=== PATIENT | female | born 1970 | race Hispanic/Latino ===

== ENCOUNTER 2019-07-26 12:01 | Emergency (ER) | payer OTHER ==
[~2019-07-26] VITALS: Ht 172.7 cm; Wt 165.6 kg
[2019-07-26] MEDS ORDERED: ONDANSETRON HCL INJ 2MG/ML 2ML 2 MG/ML VIAL IV STA (12:26)
[2019-07-26] MEDS ORDERED: SODIUM CHLORIDE 0.9% 1000ML 1,000 ML IV SCH (12:30)
--- NOTE | 2019-07-26 12:46 | NUR ---
PT STATED SHE IS TOO CLAUSTROPHOBIC TO DO CT, DR NOTIFIED ORDERS RECEIVED FOR 1MG ATIVAN, PT TOLERATED WELL,
[2019-07-26] MEDS ORDERED: LORAZEPAM INJ 2 MG/ML VIAL ONE (12:48)
[2019-07-26] MEDS ORDERED: SODIUM CHLORIDE 0.9% 1000ML 1,000 ML ONE (13:12)
[2019-07-26] MEDS ORDERED: ONDANSETRON HCL INJ 2MG/ML 2ML 2 MG/ML VIAL ONE (13:12)
[2019-07-26] MEDS ORDERED: LORAZEPAM INJ 2 MG/ML VIAL IV ONE (13:15)
[2019-07-26] MEDS ORDERED: CEFTRIAXONE SOD 1 GM/NS 50 ML 50 ML IV ONE (13:30)
[2019-07-26] MEDS ORDERED: CEFTRIAXONE SOD 1 GM VIAL ONE (13:38)
--- NOTE | 2019-07-26 14:15 | Diagnostic Imaging Report ---
EXAM: CT Abdomen and Pelvis WITH intravenous contrast INDICATION: Abdominal pain COMPARISON: None. TECHNIQUE: Abdomen and pelvis were scanned utilizing a multidetector helical scanner from the lung base to the pubic symphysis after administration of IV contrast. Coronal and sagittal reformations were obtained. Routine protocol was performed. Scan was performed during portal venous phase. IV CONTRAST: 100mL of Isovue 370 ORAL CONTRAST: Water RADIATION DOSE: Total DLP: 1164.4 mGy*cm Dose modulation, iterative reconstruction, and/or weight based adjustment of the mA/kV was utilized to reduce the radiation dose to as low as reasonably achievable. FINDINGS: LOWER THORAX: Mild interstitial pulmonary edema. Mild bibasilar subsegmental atelectasis. HEPATOBILIARY: No focal liver lesion. Status post cholecystectomy. SPLEEN: No splenomegaly. PANCREAS: No focal masses or ductal dilatation. ADRENALS: No adrenal nodules. KIDNEYS/URETERS: No hydronephrosis, stones, or solid mass lesions. PELVIC ORGANS/BLADDER: 4.7 cm right adnexal cyst. PERITONEUM / RETROPERITONEUM: No free air or fluid. LYMPH NODES: No lymphadenopathy. VESSELS: Unremarkable. GI TRACT: Status post gastric lap band. Mild diverticulosis. No CT evidence of diverticulitis. No abnormal bowel wall thickening. No bowel obstruction. Normal appendix. BONES AND SOFT TISSUES: No acute osseous injury. No suspicious lytic or blastic lesions. IMPRESSION: No acute findings in the abdomen or pelvis. Mild interstitial pulmonary edema. 4.7 cm right adnexal cyst. In this patient of 49 years of age, pelvic ultrasound follow-up in 6-12 months is recommended to document stability. Signed by: Coleen Sun MD on 07/26/2019 2:12 PM
[2019-07-26 14:22] VITALS: BP 147/91
[2019-07-26] MEDS ORDERED: BACTRIM DS TAB1 EACH PO (14:22)
[2019-07-26] MEDS ORDERED: NAPROSYN500 MG PO (14:22)
--- NOTE | 2019-07-26 14:30 | NUR ---
Urine culture collected and sent to the lab via [employer].
== END 2019-07-26 14:35 | disposition home or self-care (01) ==
LOC: FSED 12:01
DX: M54.5 Low back pain (principal); R10.31 Right lower quadrant pain; R11.0 Nausea; N30.91 Cystitis, unspecified with hematuria; N83.201 Unspecified ovarian cyst, right side
CPT/HCPCS: 74176; 87086; 99284; J0696; J2060; J2405; J7030

== ENCOUNTER 2022-01-03 17:00 | Emergency (ER) | payer OTHER ==
[~2022-01-03] VITALS: Ht 175.3 cm; Wt 163.3 kg
[~2022-01-03 17:00] MED LIST: BACTRIM DS TAB1 EACH PO; NAPROSYN500 MG PO
[2022-01-03] MEDS ORDERED: ONDANSETRON HCL INJ 2MG/ML 2ML 2 MG/ML VIAL IV STA (17:24)
[2022-01-03] MEDS ORDERED: SODIUM CHLORIDE 0.9% 100 ML 100 ML IV ONE (17:30)
[2022-01-03] MEDS ORDERED: SODIUM CHLORIDE 0.9% 1000ML 1,000 ML ONE (17:41)
[2022-01-03] MEDS ORDERED: ONDANSETRON HCL INJ 2MG/ML 2ML 2 MG/ML VIAL ONE (17:41)
[2022-01-03] MEDS ORDERED: DICYCLOMINE HCL10 MG PO (17:53)
[2022-01-03] MEDS ORDERED: ONDANSETRON ODT4 MG PO (17:53)
[2022-01-03 18:00] VITALS: BP 143/98
== END 2022-01-03 18:07 | disposition home or self-care (01) ==
LOC: FSED 17:28
DX: R11.2 Nausea with vomiting, unspecified (principal); K52.9 Noninfective gastroenteritis and colitis, unspecified; R50.9 Fever, unspecified; I10 Essential (primary) hypertension; F41.9 Anxiety disorder, unspecified; E03.9 Hypothyroidism, unspecified; Z98.84 Bariatric surgery status
CPT/HCPCS: 80048; 80076; 81003; 85025; 99283; J2405; J7030

== ENCOUNTER 2022-12-27 17:02 | Emergency (ER) | payer OTHER ==
[~2022-12-27] VITALS: Ht 175.3 cm; Wt 163.3 kg
[~2022-12-27 17:02] MED LIST changes: +DICYCLOMINE HCL10 MG PO; +ONDANSETRON ODT4 MG PO
[2022-12-27] MEDS ORDERED: PROVENTIL HFA6.7 GM INH (18:03)
[2022-12-27] MEDS ORDERED: PREDNISONE20 MG PO (18:04)
== END 2022-12-27 18:16 | disposition home or self-care (01) ==
LOC: FSED 17:18
DX: R05.9 Cough, unspecified (principal); J40 Bronchitis, not specified as acute or chronic; R01.1 Cardiac murmur, unspecified; I10 Essential (primary) hypertension; E03.9 Hypothyroidism, unspecified; F41.9 Anxiety disorder, unspecified; Z98.84 Bariatric surgery status
CPT/HCPCS: 71046; 99283

== ENCOUNTER 2023-03-10 18:46 | Emergency (ER) | payer OTHER ==
[~2023-03-10] VITALS: Ht 175.3 cm; Wt 159.5 kg
[~2023-03-10 18:46] MED LIST changes: +PREDNISONE20 MG PO; +PROVENTIL HFA6.7 GM INH
[2023-03-10] MEDS ORDERED: SODIUM CHLORIDE 0.9% 1000ML 1,000 ML IV STA (19:13)
[2023-03-10] MEDS ORDERED: FAMOTIDINE 20 MG/2 ML VIAL IV ONE (19:15)
[2023-03-10] MEDS ORDERED: KETOROLAC TROMETHAMINE 30 MG/ML VIAL IV ONE (19:15)
[2023-03-10] MEDS ORDERED: ONDANSETRON HCL INJ 2MG/ML 2ML 2 MG/ML VIAL IV ONE (19:15)
[2023-03-10] MEDS ORDERED: SODIUM CHLORIDE 0.9% 1000ML 1,000 ML ONE (19:23)
[2023-03-10] MEDS ORDERED: LORAZEPAM INJ 2 MG/ML VIAL IV ONE (19:45)
[2023-03-10] MEDS ORDERED: CEFTRIAXONE 1 GM VIAL IV ONE (19:45)
[2023-03-10] MEDS ORDERED: LORAZEPAM INJ 2 MG/ML VIAL ONE (19:47)
[2023-03-10] MEDS ORDERED: ONDANSETRON ODT4 MG PO (20:49)
[2023-03-10] MEDS ORDERED: PROBIOTIC & AC1 EACH PO (20:49)
[2023-03-10] MEDS ORDERED: OMEPRAZOLE40 MG PO (20:49)
[2023-03-10] MEDS ORDERED: NAPROSYN500 MG PO (20:49)
[2023-03-10] MEDS ORDERED: CEFDINIR300 MG PO (20:49)
[2023-03-10] MEDS ORDERED: ACETAMINOPHEN 325 MG TAB ONE (21:02)
[2023-03-10] MEDS ORDERED: CEFTRIAXONE 1 GM VIAL ONE (21:02)
[2023-03-10 21:15] VITALS: BP 121/79; PULSE 99; RESP 18; TEMP 98.5; O2SAT 98
== END 2023-03-10 21:15 | disposition home or self-care (01) ==
LOC: FSED 18:59
DX: M54.50 Low back pain, unspecified (principal); N30.90 Cystitis, unspecified without hematuria; R11.0 Nausea; K63.89 Other specified diseases of intestine; R10.30 Lower abdominal pain, unspecified; I10 Essential (primary) hypertension; E03.9 Hypothyroidism, unspecified; F41.9 Anxiety disorder, unspecified; E66.9 Obesity, unspecified; Z98.84 Bariatric surgery status
CPT/HCPCS: 74176; 80053; 81003; 85025; 99284; J0696; J1885; J2060; J2405; J7030